=== PATIENT | female | born 1970 | race Caucasian/White ===

== ENCOUNTER 2017-04-07 07:57 | Emergency (ER) | payer OTHER ==
[~2017-04-07] VITALS: Ht 172.7 cm; Wt 81.6 kg
--- NOTE | ~2017-04-07 | CT4 ---
[facility] A Service of [facility] RADIOLOGY TEXT RESULTS PATIENT: MOLLY GERMAN LOCATION: [facility] : 74 UNIT #: [id number] AGE: [address]: Yuval Cortes DO SEX: F ORDER DR: [id number] [facility] [address] [place], [place] [address] [id number] E MR#: [id number] Acc #: [id number] NAME: MOLLY GERMAN : 1970 SEX: F STUDY DATE/TIME: 04/07/2017 11:55 UNIT: [facility] ROOM: STUDY DESCRIPTION: CT Abd and Pelv Wo Cont Attending Physician: Yuval Cortes D.O. Ordering Physician: Yuval Cortes D.O. MEDICAL IMAGING REPORT This report is preliminary unless electronic signature is present EXAM CT of the abdomen and pelvis without contrast HISTORY Left-sided abdominal pain since this morning. TECHNIQUE Axial CT images were obtained from the dome of the diaphragm to the symphysis pubis. No oral or intravenous contrast material was administered. This CT exam was performed with one or more of the following radiation dose reduction techniques: automatic exposure control, adjustment of mA and/or kV according to patient size, and iterative reconstruction. FINDINGS Lung bases are clear. Stomach and proximal small bowel within normal limits as are the adrenal glands, spleen, liver, gallbladder and pancreas. Kidneys appear normal. No free fluid or adenopathy seen in the abdomen. There is no evidence mechanical bowel obstruction. The appendix is visualized and is within normal limits. Uterus appears unremarkable. No suspicious adnexal masses are seen. I do not see any free fluid or adenopathy in the pelvis. Review of bony windows does not demonstrate any aggressive osseous abnormalities. IMPRESSION No acute intraabdominal or intrapelvic process is seen to account for the patient's symptomatology. Solid organs appear unremarkable. There is no evidence mechanical bowel obstruction. The appendix is visualized and is within normal limits. Dictated by... [facility] A Service [facility] RADIOLOGY TEXT RESULTS PATIENT: MOLLY GERMAN LOCATION: [facility] : 74 UNIT #: [id number] AGE: [address]: Yuval Cortes DO SEX: F ORDER DR: Maryann Denise M.D. THIS IS AN ELECTRONICALLY VERIFIED REPORT Maryann Denise M.D. at 04/08/2017 5:06 PM AFF/pcl TD: 04/08/2017 01:00 JOB #: [id number] MEDICAL IMAGING REPORT Page 1 of 1 COPY
--- NOTE | ~2017-04-07 | EKG ---
PATIENT: MOLLY GERMAN UNIT #: [id number] Ventricular Rate: 75 BPM Atrial Rate: 75 BPM P-R Interval: 154 ms QRS Duration: 74 ms Q-T Interval: 386 ms QTC Calculation(Bezet): 431 ms P Williamson: 80 degrees Calculated R Williamson: 26 degrees Calculated T Williamson: 76 degrees Diagnosis Line: Normal sinus rhythm Diagnosis Line: Normal ECG Diagnosis Line: No previous ECGs available Diagnosis Line: Confirmed by ALMA ARMSTRONG MD ([id number]) on Diagnosis Line: 04/08/2017 12:32:50 PM INTERPRETING MD: PATTI ROTH
--- NOTE | ~2017-04-07 | CR72 ---
[facility] A Service of [facility] RADIOLOGY TEXT RESULTS PATIENT: MOLLY GERMAN LOCATION: [facility] : 74 UNIT #: [id number] AGE: [address]: Yuval Cortes DO SEX: F ORDER DR: [id number] [facility] [address] [place], [place] [address] [id number] E MR#: [id number] Acc #: [id number] NAME: MOLLY GERMAN : 1970 SEX: F STUDY DATE/TIME: 04/07/2017 9:20 UNIT: [facility] ROOM: STUDY DESCRIPTION: CR Chest Single View Portable Attending Physician: Yuval Cortes D.O. Ordering Physician: Yuval Cortes D.O. Primary Care Physician: No Primary Care Physician MEDICAL IMAGING REPORT This report is preliminary unless electronic signature is present EXAM Portable chest 04/07 INDICATION Chest pain under the left breast with shortness of air that started this morning. COMPARISON 08/28/2016 FINDINGS A single AP portable view of the chest shows both lungs to be clear. The heart is normal in size. The mediastinal contour is normal. No significant bone abnormalities are seen. IMPRESSION Normal portable chest. Dictated by... Abdirashid Worthington Jr., M.D. THIS IS AN ELECTRONICALLY VERIFIED REPORT Abdirashid Worthington Jr., M.D. at 04/07/2017 4:39 PM KYLE/mansi TD: 04/07/2017 14:29 JOB #: [id number] MEDICAL IMAGING REPORT Page 1 of 1 COPY
[~2017-04-07 07:57] MED LIST: ALBUTEROL17 GM INH; AUGMENTIN PO; BENZONATATE PO; DOXYCYCLINE HY100 M3 PO; DOXYCYCLINE150 MG PO; FLEXERIL PO; FLEXERIL10 MG PO; GUAIFENESIN200 M1 PO; KETOPROFEN PO; LOMOTIL TABLET1 TAB; LOMOTIL TABLET1 TAB PO; MEDROL PO; MEDROL4 MG/DOSE- PO; PHENERGAN DM1 ML PO; PREDNISONE PO; VICODIN 5/1 TAB 5/50 PO; ZOFRAN8 MG PO; ZYRTEC PO
[2017-04-07 09:20] LABS: URINE SOURCE CLEAN CATCH
[2017-04-07 09:33] LABS: URINE APPEARANCE CLEAR; URINE BILIRUBIN NEG (NEG); URINE BLOOD 2+ (NEG); URINE COLOR YELLOW; URINE GLUCOSE NEG (NEG); URINE KETONE NEG (NEG); URINE LEUKOCYTE ESTERASE NEG (NEG); URINE NITRATE NEG (NEG); URINE PH 5.5 (5-8); URINE PROTEIN NEG (NEG); URINE SPECIFIC GRAVITY 1.015 (1.003-1.035); URINE UROBILINOGEN 0.2 MG/DL (NEG)
[2017-04-07 09:35] LABS: BASOPHIL# 0.1 X10e3 (0-0.3); BASOPHIL% 1.2 % (0-2.5); EOSINOPHIL# 0.2 X10e3 (0-0.7); EOSINOPHIL% 3.7 % (0.0-7.0); HEMATOCRIT 47.4 % (35.0-45.0); HEMOGLOBIN 16.2 gm/dL (12.0-16.0); LYMPHOCYTE# 1.2 X10e3 (1.0-3.5); LYMPHOCYTE% 19.7 % (17.0-45.0); MEAN CELL VOLUME 106.4 FL (83-96); MEAN CORPUSCULAR HEMOGLOBIN 36.4 PG (28-34); MEAN CORPUSCULAR HGB CONC 34.2 g/dL (30-36); MEAN PLATELET VOLUME 8.5 FL (6.5-11.5); MONOCYTE# 0.5 X10e3 (0-1.0); MONOCYTE% 7.5 % (3.0-12.0); NEUTROPHIL# 4.2 X10e3 (1.5-7.1); NEUTROPHIL% 67.9 % (40-75); PLATELET COUNT 189 X10e3 (140-420); RED BLOOD COUNT 4.45 X10e (3.90-5.30); RED CELL DISTRIBUTION WIDTH 13.3 % (11.0-15.5); U HYALINE CASTS AUWI 0-2 /[LPF]; URINE BACTERIA AUWI NEG (NEGATIVE); URINE SQUAMOUS EPITHELIAL CELL NONE SEEN /[HPF]; UWBCS1 AUWI 0-2 (0-5); WHITE BLOOD COUNT 6.2 X10e3 (4.0-10.5)
[2017-04-07 09:36] LABS: CULTURE INDICATED? NO; DIFF IND YES
[2017-04-07 10:07] LABS: POC - CKMB <1.0 ng/mL (0.0-7.9); POC - TROPONIN <0.05 ng/mL (<=0.05)
[2017-04-07 10:08] LABS: PLATELET ESTIMATE NORMAL (NORMAL)
[2017-04-07 10:13] LABS: ANISOCYTOSIS SL
[2017-04-07 10:17] LABS: ALBUMIN SERUM 4.2 g/dL (3.5-5.0); BILIRUBIN, DIRECT 0.1 mg/dL (0.0-0.2); BILIRUBIN,INDIRECT 0.3 mg/dL (0.0-0.9); BILIRUBIN,TOTAL 0.4 mg/dL (0.2-2.0); BUN/CREATININE RATIO 18.33; CREATININE SERUM 0.6 mg/dL (0.6-1.4); GLOM FILT RATE Estimated 110.1 mL/min (>60); POTASSIUM 4.4 mmol/L (3.5-5.1); PROTEIN TOTAL SERUM 7.3 g/dL (6.0-8.3)
[2017-04-07 11:06] LABS: POC - CKMB <1.0 ng/mL (0.0-7.9); POC - TROPONIN <0.05 ng/mL (<=0.05)
[2017-04-07] MEDS ORDERED: NO MEDICATIONS (13:41)
== END 2017-04-07 14:14 | disposition short-term general hospital (02) ==
LOC: CED 07:57
PROVIDERS: Emergency Medicine
DX: J44.9 Chronic obstructive pulmonary disease, unspecified (principal); J45.909 Unspecified asthma, uncomplicated; F17.200 Nicotine dependence, unspecified, uncomplicated
CPT/HCPCS: 36415; 71010; 74176; 80048; 80076; 81003; 82553; 83690; 84484; 84703; 85025; 85379; 93005; 94640; 96374; 96375; 99285; J1885; J2270; J2405; J2930